=== PATIENT | male | born 1945 | race Caucasian/White ===

== ENCOUNTER 2017-06-08 17:59 | Emergency (ER) | payer MEDICARE ==
[2017-06-08] MEDS ORDERED: TETANUS/DIPHTHERIA TOXOID [ADULT] 0.5 ML VIAL IM ONE (18:15)
[2017-06-08] MEDS ORDERED: LIDOCAINE HCL-MPF 1% 2ML VIAL ONE (19:28)
[2017-06-08] MEDS ORDERED: CEFTRIAXONE SODIUM 1 GM ONE (19:28)
== END 2017-06-08 20:04 | disposition home or self-care (01) ==
LOC: EDH 17:59
DX: S91.332A Puncture wound without foreign body, left foot, initial encounter (principal); I10 Essential (primary) hypertension; E07.9 Disorder of thyroid, unspecified; Z88.0 Allergy status to penicillin; W26.8XXA Contact with other sharp object(s), not elsewhere classified, initial encounter; Y93.89 Activity, other specified; Y92.098 Other place in other non-institutional residence as the place of occurrence of the external cause; Y99.8 Other external cause status
CPT/HCPCS: 73630; 90471; 90714; 96372; 99284; J0696; J3490